=== PATIENT | female | born 1975 ===

== ENCOUNTER 2017-08-12 04:41 | Emergency (ER) | payer BC ==
--- NOTE | 2017-08-12 05:40 | ED PDOC ---
HPI: General Adult Time Seen by Provider: 08/12/17 05:23 Chief Complaint (Nursing): Weakness/Neurological Deficit Chief Complaint (Provider): Weakness History Per: Patient History/Exam Limitations: no limitations Onset/Duration Of Symptoms: Sudden Onset (0400) Current Symptoms Are (Timing): Better Additional Complaint(s): 42 y/o female with a PMHx of HTN and diabetes presenting for evaluation of weakness x2 hours. Patient states she awoke at 4am with her body paralyzed and she was unable to move or talk for 5 minutes. She states the episode resolved on its own. Patient denies any symptoms upon arrival to ED, but reports feeling generally weak. She denies any headache, nausea, vomiting, or shortness of breath. Patient reports a similar episode occurred a month ago, but she did not seek medical attention at the time. Patient and daughter both report patient has been feeling occupied after the of her father 1 month ago. PMD: [facility]. Juanjo Figuerdeo ([facility]) Past Medical History Reviewed: Historical Data, Nursing Documentation, Vital Signs Vital Signs: Last Vital Signs Temp 98.4 F 08/12/17 07:10 Pulse 82 08/12/17 07:10 Resp 17 08/12/17 07:10 BP 135/84 08/12/17 07:10 Pulse Ox 99 08/12/17 07:10 - Medical History PMH: Diabetes, HTN - Surgical History Surgical History: No Surg Hx - Family History Family History: States: Unknown Family Hx - Social History Current smoker - smoking cessation education provided: No Alcohol: None Drugs: Denies - Home Medications Home Medications: Ambulatory Orders Medication Instructions Recorded Ibuprofen [Motrin] 600 mg PO Q6 PRN #20 tab 11/24/14 Ondansetron [Zofran] 4 mg PO Q6H PRN #10 tab 11/24/14 Polymyxin/Trimethoprim Sulfate 100 drop OD BID #1 bottle 03/12/15 [Polytrim Ophth Soln] - Allergies Allergies/Adverse Reactions: Allergies Allergy/AdvReac Type Severity Reaction Status Date / Time No Known Allergies Allergy Verified 03/12/15 19:43 Review of Systems ROS Statement: Except As Marked, All Systems Reviewed And Found Negative Respiratory: Negative for: Shortness of Breath Gastrointestinal: Negative for: Nausea, Vomiting Neurological: Positive for: Weakness. Negative for: Headache Physical Exam - Reviewed Nursing Documentation Reviewed: Yes Vital Signs Reviewed: Yes - Physical Exam Appears: Positive for: Non-toxic, No Acute Distress Head Exam: Positive for: ATRAUMATIC, NORMAL INSPECTION, NORMOCEPHALIC Skin: Positive for: Normal Color, Warm, Dry. Negative for: Rash Eye Exam: Positive for: EOMI, Normal appearance, PERRL Neck: Positive for: Normal, Painless ROM, Supple Cardiovascular/Chest: Positive for: Regular Rate, Rhythm. Negative for: Murmur Respiratory: Positive for: Normal Breath Sounds. Negative for: Respiratory Distress Gastrointestinal/Abdominal: Positive for: Normal Exam, Soft. Negative for: Tenderness Back: Positive for: Normal Inspection. Negative for: L CVA Tenderness, R CVA Tenderness, Vertebral Tenderness Extremity: Positive for: Normal ROM. Negative for: Pedal Edema, Deformity Neurologic/Psych: Positive for: Alert, agricultural education teacher II-XII (intact), Oriented (x3), Cerebellar Tests (normal), Gait (steady). Negative for: Motor/Sensory Deficits , Aphasia, Facial Droop - Laboratory Results Result Diagrams: 08/12/17 05:40 08/12/17 05:40 - ECG O2 Sat by Pulse Oximetry: 98 (RA) Pulse Ox Interpretation: Normal Medical Decision Making Medical Decision Makin:30 Impression: 42 y/o female with episode of weakness Plan: -CT Head w/o contrast -EKG -Accucheck -BMP -Urine -Urine dipstick -CBC -PTT/PT -Heplock -Accucheck -Reevaluation ----- Scribe Attestation: Documented by Isai Cook, acting as a scribe for Tai Kwon MD. Provider Scribe Attestation: All medical record entries made by the Scribe were at my direction and personally dictated by me. I have reviewed the chart and agree that the record accurately reflects my personal performance of the history, physical exam, medical decision making, and the department course for this patient. I have also personally directed, reviewed, and agree with the discharge instructions and disposition. Disposition - Clinical Impression Clinical Impression: Conversion disorder - Disposition Disposition: Routine/Home Disposition Time: 07:00 Condition: STABLE Instructions: Conversion Disorder Forms: [facility] (Pashto) Print Language: HAITIAN
[2017-08-12 05:55] LABS: BASO # 0.1 K/uL (0.0-0.2); BASO % 0.8 % (0.0-2.0); EOS # 0.2 K/uL (0.0-0.7); EOS % 2.7 % (0.0-4.0); HEMOGLOBIN 13.1 g/dL (12.0-16.0); LYMPH % 23.8 % (20.0-40.0); MEAN CELL VOLUME 90.9 fl (81.0-99.0); MEAN CORPUSCULAR HEMOGLOBIN 31.4 pg (27.0-31.0); MEAN CORPUSCULAR HGB CONC 34.5 g/dL (33.0-37.0); MEAN PLATELET VOLUME 9.8 fl (7.2-11.7); MONO # 0.5 K/uL (0.0-0.8); MONO % 6.4 % (0.0-10.0); NEUT # 5.7 K/uL (1.8-7.0); NEUT % 66.3 % (50.0-75.0); RBC 4.18 Mil/uL (3.80-5.20); RED CELL DISTRIBUTION WIDTH 13.1 % (11.5-14.5); WHITE BLOOD COUNT 8.6 K/uL (4.8-10.8)
[2017-08-12 06:04] LABS: INR 0.9 (0.9-1.2); PARTIAL THROMBOPLASTIN TIME 27.2 Seconds (25.6-37.1); PROTHROMBIN TIME 10.4 Seconds (9.8-13.1)
[2017-08-12 06:07] LABS: BLOOD UREA NITROGEN 12 mg/dl (7-17); CALCIUM 9.1 mg/dL (8.4-10.2); GFR AFRICAN-AMERICAN > 60; GFR NON-AFRICAN AMERICAN > 60
[2017-08-12 07:18] VITALS: BP 135/84; PULSE 82; RESP 17; TEMP 98.4
--- NOTE | 2017-08-12 08:47 | CT ---
PROCEDURE: CT HEAD WITHOUT CONTRAST. HISTORY: weakness COMPARISON: None available. TECHNIQUE: Axial computed tomography images were obtained through the head/brain without intravenous contrast. Radiation dose: Total exam DLP = 805.38 mGy-cm. This CT exam was performed using one or more of the following dose reduction techniques: Automated exposure control, adjustment of the mA and/or kV according to patient size, and/or use of iterative reconstruction technique. FINDINGS: HEMORRHAGE: No intracranial hemorrhage. BRAIN: With the exception of a small calcified granuloma or other calcification at the right frontal lobe, the remaining parenchyma is grossly nonfocal. Normal grullon-white matter differentiation and density are appreciated throughout the cerebrum and cerebellum otherwise, with the brainstem appearing unremarkable as well. There is no mass effect. There is no suspicious extra-axial fluid collection and the midline brain anatomy appears diffusely unremarkable. VENTRICLES: Unremarkable. No hydrocephalus. CALVARIUM: Unremarkable. PARANASAL SINUSES: Unremarkable as visualized. No significant inflammatory changes. MASTOID AIR CELLS: Unremarkable as visualized. No inflammatory changes. OTHER FINDINGS: None. IMPRESSION: No acute intracranial findings by standard CT criteria. Solitary granuloma or other calcification identified punctate in size at the right frontal lobe with remaining brain normal in appearance. Concordant preliminary report from [facility], 08/12/2017.
--- NOTE | 2017-08-12 11:25 | CARD ---
APPROVED REPORT <Conclusion> Normal sinus rhythm Normal ECG
[2017-08-23 06:55] VITALS: O2SAT 98
== END 2017-08-12 07:14 | disposition home or self-care (01) ==
LOC: H.ER 04:41
DX: F44.4 Conversion disorder with motor symptom or deficit (principal); R53.1 Weakness; E11.9 Type 2 diabetes mellitus without complications; I10 Essential (primary) hypertension